=== PATIENT | male | born 1965 | race African-American/Black ===

== ENCOUNTER 2024-02-12 13:37 | Inpatient (IN) | payer OTHER ==
[2024-02-12 16:33] VITALS: BMI 21.4
[2024-02-12] MEDS ORDERED: guaiFENesin 600 MG TABLET.ER (FP) PO PRN (17:33)
[2024-02-12] MEDS ORDERED: NALOXONE HCL (KLOXXADO) 8 MG SPRAY NS PRN (17:33)
[2024-02-12] MEDS ORDERED: ONDANSETRON *ODT* 4 MG TABLET SL PRN (17:33)
[2024-02-12] MEDS ORDERED: ACETAMINOPHEN 325 MG TABLET (FP) PO PRN (17:33)
[2024-02-12] MEDS ORDERED: POLYETHYLENE GLYCOL (HEALTHYLAX) 3350 17 GM PACKET PO PRN (17:33)
[2024-02-12] MEDS ORDERED: BENZOCAINE/MENTHOL (CHLORASEPTIC ) LOZENGE MM PRN (17:33)
[2024-02-12] MEDS ORDERED: MAG HYDROX/AL HYDROX/SIMETH 30 ML UNIT-DOSE CUP PO PRN (17:33)
[2024-02-12] MEDS ORDERED: BENZONATATE 200 MG CAPSULE PO PRN (17:33)
[2024-02-12] MEDS ORDERED: IBUPROFEN 400 MG TABLET (FP) PO PRN (17:33)
[2024-02-12] MEDS ORDERED: BISMUTH SUBSALICYLATE 524 MG/30 ML PO PRN (17:33)
[2024-02-12] MEDS ORDERED: LOPERAMIDE HCL 2 MG CAPSULE PO PRN (17:33)
[2024-02-12] MEDS ORDERED: MAGNESIUM HYDROX 2400MG/30ML ORAL SUSPENSION 30 ML CUP PO PRN (17:33)
[2024-02-12] MEDS ORDERED: IBUPROFEN 600 MG TABLET (FP) PO PRN (17:33)
[2024-02-12] MEDS ORDERED: DICYCLOMINE HCL 10 MG CAPSULE PO PRN (17:33)
[2024-02-12] MEDS ORDERED: NALOXONE HCL 0.4 MG/ML VIAL IM PRN (17:33)
[2024-02-12] MEDS ORDERED: P-EPHED 60MG/TRIPROLIDI 2.5MG TABLET PO PRN (17:33)
[2024-02-12] MEDS: THIAMINE 100 MG TABLET PO SCH (22:32)
[2024-02-12] MEDS: MELATONIN 5 MG TABLETS PO SCH (22:32)
[2024-02-13] MEDS: PRENATAL VITAMINS W/ FOLIC ACID TABLET (FP) PO SCH (10:19)
[2024-02-13] MEDS: methaDONE HCL 10 MG TABLET PO ONE (11:10)
[2024-02-13 11:55] LABS: HEMATOCRIT 40.6 % (35.4-49); HEMOGLOBIN 13.6 GM/dL (11.7-16.9); MCH 29.2 pg (25.7-33.7); MCHC 33.5 g/dl (32.0-35.9); PLATELET COUNT 211 10^3/uL (134-434); RBC 4.66 M/mm3 (4.00-5.60); RDW 13.7 % (11.9-15.9); WHITE BLOOD COUNT 3.1 K/mm3 (4.0-10.0)
[2024-02-13] MEDS ORDERED: methaDONE HCL 10 MG TABLET PO PRN (12:21)
[2024-02-13 12:45] LABS: POTASSIUM 4.7 mmol/L (3.5-5.1)
[2024-02-13 12:48] LABS: ALBUMIN 3.5 g/dl (3.4-5.0); CALCIUM 8.9 mg/dL (8.5-10.1)
[2024-02-13 12:51] LABS: CREATININE 0.8 mg/dL (0.55-1.3)
[2024-02-13 12:53] LABS: BILIRUBIN,TOTAL 0.8 mg/dL (0.2-1); TOT PROT 6.4 g/dl (6.4-8.2)
[2024-02-13] MEDS: METHOCARBAMOL 500 MG TABLET PO PRN (22:52)
[2024-02-14] MEDS: methaDONE 40 MG, methaDONE 10 MG PO ONE (09:46)
[2024-02-14] MEDS: hydrOXYzine PAMOATE 25 MG CAPSULE (FP) PO PRN (22:24)
[2024-02-15] MEDS: methaDONE 40 MG, methaDONE 20 MG PO ONE (09:31)
[2024-02-16] MEDS: methaDONE 40 MG, methaDONE 30 MG PO ONE (09:19)
[2024-02-17] MEDS: methaDONE HCL 40 MG DISPERSABLE TABLET PO ONE (09:40)
[2024-02-17 21:56] VITALS: TEMP 97.7
[2024-02-18 07:24] VITALS: RESP 16
[2024-02-18 09:39] VITALS: BP 121/77; PULSE 67
[2024-02-18] MEDS: methaDONE 80 MG, methaDONE 10 MG PO ONE (09:49)
== END 2024-02-18 12:35 | disposition home or self-care (01) | DRG 773 ==
LOC: YASAS 13:37 → Y6N 17:55
PROVIDERS: ADMIT Allergy & Immunology; ATTEND Surgery
PROC: HZ2ZZZZ Detoxification Services for Substance Abuse Treatment (ICD-10-PCS; principal; 2024-02-12)
DX: F11.23 Opioid dependence with withdrawal (principal); F14.20 Cocaine dependence, uncomplicated; F12.20 Cannabis dependence, uncomplicated; F17.210 Nicotine dependence, cigarettes, uncomplicated
CPT/HCPCS: 36415; 71045-TC-FY; 80053; 80305; 80307; 85027; 86780; 93005; 93010